=== PATIENT | male | born 1945 | race Caucasian/White ===

== ENCOUNTER 2023-11-13 11:21 | Inpatient (IN) | payer MEDICARE, BC ==
[2023-11-13 11:34] LABS: BASOPHILS ABSOLUTE AUTO 0.01 10^3/uL (0.00-0.10); BASOPHILS PERCENT AUTO 0.1 % (0.0-1.0); EOSINOPHILS ABSOLUTE AUTO 0.08 10^3/uL (0.10-0.30); HEMATOCRIT 38.1 % (40.0-52.0); HEMOGLOBIN 12.5 g/dL (13.0-17.0); IMMATURE GRAN ABSOLUTE AUTO 0.01 10^3/uL (0.00-0.50); IMMATURE GRAN PERCENT AUTO 0.1 % (0.0-5.0); LYMPHOCYTES ABSOLUTE AUTO 1.04 10^3/uL (1.00-4.00); LYMPHOCYTES PERCENT AUTO 12.5 % (20.0-40.0); MEAN CORPUSCULAR HEMOGLOBIN 31.1 pg (27.0-31.0); MEAN CORPUSCULAR HGB CONC 32.8 g/dL (32.0-36.0); MEAN CORPUSCULAR VOLUME 94.8 fL (82.0-92.0); MEAN PLATELET VOLUME 9.3 fL (7.4-10.4); MONOCYTES PERCENT AUTO 8.4 % (2.0-8.0); NEUTROPHILS ABSOLUTE AUTO 6.46 10^3/uL (2.50-7.00); NEUTROPHILS PERCENT AUTO 77.9 % (50.0-70.0); PLATELET COUNT,PLT 152 10^3/uL (150-400); RED BLOOD CELL COUNT 4.02 10^6/uL (4.50-6.00); RED CELL DISTRIBUTION WIDTH 13.1 % (11.5-14.5)
[2023-11-13 11:51] LABS: ALANINE AMINOTRANSFERASE,ALT 8 U/L (14-63); ALBUMIN 3.38 g/dL (3.40-5.00); ALKALINE PHOSPHATASE 61 U/L (46-116); ASPARTATE AMNIOTRANSFERASE,AST 14 U/L (15-37); BILIRUBIN TOTAL 0.7 mg/dL (0.2-1.0); BLOOD UREA NITROGEN,BUN 24 mg/dL (7-18); CALCIUM 8.7 mg/dL (8.7-10.3); CARBON DIOXIDE,CO2 29.9 mmol/L (21.0-32.0); CHLORIDE,CL 103 mmol/L (98-107); CREATININE 1.14 mg/dL (0.51-1.17); GLUCOSE RANDOM 124 mg/dL (70-140); POTASSIUM,K 3.9 mmol/L (3.5-5.1); PROTEIN TOTAL,TP 6.4 g/dL (6.4-8.2); SODIUM,NA 140 mmol/L (136-145)
[2023-11-13 11:54] LABS: APPEARANCE,URINE CLEAR (CLEAR); BILIRUBIN,URINE NEGATIVE (NEGATIVE); COLOR,URINE YELLOW (YELLOW); GLUCOSE,URINE NEGATIVE (NEGATIVE); KETONES,URINE NEGATIVE (NEGATIVE); LEUKOCYTE ESTERASE,URINE NEGATIVE (NEGATIVE); NITRITE,URINE NEGATIVE (NEGATIVE); OCCULT BLOOD,URINE TRACE-INTACT (NEGATIVE); PROTEIN,URINE NEGATIVE (NEGATIVE); UROBILINOGEN,URINE 0.2 E.U./dL (0.2-1.0)
[2023-11-13 11:57] LABS: ESTIMATED GFR 65 mL/min (>=60)
[2023-11-13 12:00] LABS: B-TYPE NATRIURETIC PEPTIDE,BNP 13 pg/mL (0-100)
[2023-11-13 12:00] LABS: BACTERIA,URINE RARE /HPF (NONE TO FEW); EPITHELIAL CELLS,URINE RARE /LPF; WBC,URINE 0-5 /HPF (0-5)
[2023-11-13] MEDS ORDERED: Polyethylene Glycol 3350 Powder 17 GM Packet PO PRN (14:20)
[2023-11-13] MEDS ORDERED: Sodium Chloride 0.9% 500 ML IV SCH (15:00)
[2023-11-13] MEDS: Carbidopa/Levodopa 25-100 MG Tab PO SCH (17:13)
[2023-11-13] MEDS: QUEtiapine 100 MG Tab PO SCH (21:10)
[2023-11-13] MEDS: Rosuvastatin 10 MG Tab PO SCH (21:10)
[2023-11-14] MEDS: Carbidopa/Levodopa 25-100 MG Tab PO SCH ×3 (06:20→17:52)
[2023-11-14] MEDS: Enoxaparin 30 MG/0.3 ML Syringe SUBCUT SCH (08:13)
[2023-11-14] MEDS: Rosuvastatin 10 MG Tab PO SCH (21:40)
[2023-11-14] MEDS: QUEtiapine 100 MG Tab PO SCH (21:41)
[2023-11-14] MEDS: Acetaminophen 325 MG Tab PO PRN (22:29)
[2023-11-15] MEDS: Carbidopa/Levodopa 25-100 MG Tab PO SCH ×3 (05:04→17:50)
[2023-11-15] MEDS: Enoxaparin 30 MG/0.3 ML Syringe SUBCUT SCH (08:43)
[2023-11-15] MEDS: Acetaminophen 325 MG Tab PO PRN ×2 (11:54→20:04)
[2023-11-15] MEDS: QUEtiapine 100 MG Tab PO SCH (20:04)
[2023-11-15] MEDS: Rosuvastatin 10 MG Tab PO SCH (20:04)
[2023-11-16] MEDS: Carbidopa/Levodopa 25-100 MG Tab PO SCH ×3 (05:22→18:07)
[2023-11-16] MEDS ORDERED: Polyethylene Glycol 3350 Powder 17 GM Packet PO PRN (07:50)
[2023-11-16] MEDS: Enoxaparin 30 MG/0.3 ML Syringe SUBCUT SCH (08:23)
[2023-11-16] MEDS: QUEtiapine 100 MG Tab PO SCH (22:20)
[2023-11-16] MEDS: Acetaminophen 325 MG Tab PO PRN (22:20)
[2023-11-16] MEDS: Rosuvastatin 10 MG Tab PO SCH (22:20)
[2023-11-17] MEDS: Carbidopa/Levodopa 25-100 MG Tab PO SCH ×2 (05:28→12:05)
[2023-11-17 05:45] VITALS: BP 138/78; PULSE 77
[2023-11-17] MEDS: Enoxaparin 30 MG/0.3 ML Syringe SUBCUT SCH (09:35)
[2023-11-17] MEDS ORDERED: Bisacodyl 10 MG Supp RECTAL ONE (12:40)
== END 2023-11-17 12:31 | DRG 641 ==
LOC: KA.ED 11:21 → KA.MS 13:14
PROVIDERS: ADMIT Nurse Practitioner Family; ATTEND Internal Medicine
DX: R62.7 Adult failure to thrive (principal); F03.90 Unspecified dementia, unspecified severity, without behavioral disturbance, psychotic disturbance, mood disturbance, and anxiety; I95.9 Hypotension, unspecified; I10 Essential (primary) hypertension; R53.1 Weakness; Z74.09 Other reduced mobility; E78.00 Pure hypercholesterolemia, unspecified; K21.9 Gastro-esophageal reflux disease without esophagitis; M25.562 Pain in left knee; R26.89 Other abnormalities of gait and mobility; Z86.69 Personal history of other diseases of the nervous system and sense organs; Z79.899 Other long term (current) drug therapy; W19.XXXA Unspecified fall, initial encounter
CPT/HCPCS: 36415; 71045; 73562-LT; 80053; 81001; 83605; 83880; 84484; 85025; 93005; 93010; 99284; 99285; A9270-GY; J1650; J7040; Q3014; U0002